=== PATIENT | female | born 1955 | race Caucasian/White ===

== ENCOUNTER 2016-07-23 06:07 | Day surgery (SDC) | payer BC ==
[2016-07-20 14:05] VITALS: BMI 40.0
[2016-07-23] MEDS ORDERED: PROPOFOL 20 ML ONE ×3 (07:21→08:10)
[2016-07-23] MEDS ORDERED: MIDAZOLAM HCL 2 MG/2 ML SINGLE DOSE VIAL ONE ×2 (07:21→08:01)
[2016-07-23] MEDS ORDERED: ePHEDrine SULFATE 50 MG/1 ML AMPULE ONE (07:22)
[2016-07-23] MEDS ORDERED: SUCCINYLCHOLINE CHLORIDE 200 MG/10 ML VIAL ONE ×2 (07:23→08:14)
[2016-07-23] MEDS ORDERED: IBUPROFEN 800 MG/8 ML IJ IVPB PRN (08:44)
[2016-07-23] MEDS ORDERED: ACETAMINOPHEN 325 MG TABLET (FP) PO PRN (08:44)
--- NOTE | 2016-07-23 08:44 | HP ---
History & Physical Update - History History: No Change - Physical Physical: No Change - Assessment Assessment: No Change - Plan Plan: No Change (Cervical polyp - for polypectomy, hysteroscopy, D&C possible hysteroscopic resection of polyp)
[2016-07-23] MEDS ORDERED: LACTATED RINGERS SOLUTION 1,000 ML IV SCH (08:45)
[2016-07-23 10:05] VITALS: TEMP 98
[2016-07-23 11:25] VITALS: BP 110/52; PULSE 72
--- NOTE | 2016-07-26 07:42 | OP ---
Operative Note - Note: Operative Date: 07/23/16 Pre-Operative Diagnosis: large cervical polyp Operation: hysteroscopy, d&c, polypectomy Findings: large 3x2cm cervical polyp Post-Operative Diagnosis: Same as Pre-op Surgeon: Audrey Sen Anesthesiologist/[employer]: Marylou Orellana MD Anesthesia: General (lma) Specimens Removed: cervical polyp. endometrial currettings Estimated Blood Loss (mls): 5 Operative Report Dictated: Yes
--- NOTE | 2016-07-26 11:27 | PATH ---
Surgical Pathology Report Patient Name: JESSICA SIDDIQI [facility]. Rec. #: [id number] /Age/Gender: 1955 (Age: 60) / F Account: [id number] Location: AMBULATORY SURG Taken: 07/23/2016 Received: 07/23/2016 Reported: 07/26/2016 Physicians: Audrey Sen M.D. Specimen(s) Received A: CERVICAL POLYP B: ENDOMETRIAL CURETTINGS Clinical History Cervical polyp Final Diagnosis A. CERVICAL POLYP, POLYPECTOMY: BENIGN CERVICAL POLYP WITH MIXED ENDO- AND ECTOCERVICAL LINING. B. ENDOMETRIUM, CURETTAGE: SCANT FRAGMENTS OF INACTIVE ENDOMETRIUM. FRAGMENTS OF BENIGN ENDOCERVICAL TISSUE WITH SQUAMOUS METAPLASIA. Electronically Signed Domingo Osuna M.D. Gross Description A. Received in formalin labeled "cervical polyp" is a 2.3 x 1.5 x 0.7 cm pink, polypoid portion of soft tissue. The specimen is bisected and entirely submitted in 2 cassettes. B. Received in formalin labeled "endometrial curettings" is a 1.8 x 1.3 x 0.3 cm aggregate of red-brown soft tissue fragments admixed with blood clot. The formalin is filtered and the specimen is entirely submitted in one cassette. /07/23/201607/23/2016
--- NOTE | 2016-07-27 12:01 | OP ---
DATE OF OPERATION: 07/23/2016 PREOPERATIVE DIAGNOSIS: Large cervical polyp. POSTOPERATIVE DIAGNOSIS: Large cervical polyp. PROCEDURE: Hysteroscopy, dilation and curettage, and polypectomy. FINDINGS: A large 3 x 2-cm cervical polyp. ESTIMATED BLOOD LOSS: 5 mL. COMPLICATIONS: None. SPECIMENS: Cervical polyp, endometrial curettings. SURGEON: Audrey Sen MD ANESTHESIOLOGIST: Marylou Orellana MD ANESTHESIA: General with LMA. COUNTS: Sponge and instrument count correct. DISPOSITION: Stable to PACU. BRIEF HISTORY AND PROCEDURE: The patient is a 60-year-old female who has been seen in the office with complaints of a protruding piece of tissue from the vagina. The patient was examined and found to have a large cervical polyp which was prolapsing and protruding through the vagina to the level of the introitus. The patient was counseled on her options, and she elected to undergo an exam under anesthesia, removal of cervical polyp, hysteroscopy, and a D&C. The patient was admitted to [facility] as an outpatient on July 23, 2016. Consents for the procedure were confirmed upon admission. The patient was then taken back to the operating room, where she was given general anesthesia with LMA, and she was placed in the dorsal lithotomy position. A speculum was placed in the vagina, and a large cervical polyp was easily visualized at this time. This was grasped with a ring forceps and was resected from its base on the posterior lip of the cervix with the Bovie device. Next, the cervix was dilated to accommodate a diagnostic hysteroscope, which was placed into the uterus to ensure complete resection of the cervical polyp. The hysteroscope was placed to the fundus, and bilateral tubal ostia were noted. No intrauterine or intracervical abnormalities were appreciated. Brief curettage was completed, and endometrial curettings were sent to Pathology for permanent evaluation. The base of the cervical polyp at this point on the posterior lip of the cervix was examined, noted to have some bleeding, and this was easily cauterized with the Bovie device. All instruments were then removed from the vagina. Excellent hemostasis was achieved at the site of the polyp resection as well as the tenaculum sites. Sponge and instrument counts were reported to be correct. The patient was awoken from anesthesia and recovered in stable condition in the PACU after the procedure. AUDREY SEN DO /[id number]
== END 2016-07-23 11:26 | disposition home or self-care (01) ==
LOC: JASUSAT 06:07
PROVIDERS: ATTEND Obstetrics & Gynecology
PROC: 0UBC8ZX Excision of Cervix, Via Natural or Artificial Opening Endoscopic, Diagnostic (ICD-10-PCS; principal; 2016-07-23 08:00)
PROC: 0UDB8ZX Extraction of Endometrium, Via Natural or Artificial Opening Endoscopic, Diagnostic (ICD-10-PCS; 2016-07-23 08:00)
DX: N84.1 Polyp of cervix uteri (principal)
CPT/HCPCS: 88305-TC; 94760